=== PATIENT | female | born 1985 | race Caucasian/White ===

== ENCOUNTER 2024-09-21 11:54 | Emergency (ER) | payer MEDICARE ==
[~2024-09-21] VITALS: Ht 165.1 cm; Wt 109.0 kg
[2024-09-21 12:05] VITALS: BP 125/77
[2024-09-21 12:15] VITALS: BP 115/69
[2024-09-21 12:30] VITALS: BP 112/79
[2024-09-21] MEDS ORDERED: VIGAMOX OD (12:32)
[2024-09-21] MEDS ORDERED: DOXYCYC MONO100 M3 PO (12:32)
[2024-09-21 12:45] VITALS: BP 113/72
== END 2024-09-21 12:45 | disposition home or self-care (01) ==
LOC: ED 11:54
DX: H00.013 Hordeolum externum right eye, unspecified eyelid (principal); F79 Unspecified intellectual disabilities; R73.03 Prediabetes; K31.84 Gastroparesis; E03.9 Hypothyroidism, unspecified